=== PATIENT | male | born 1980 | race Hispanic/Latino ===

== ENCOUNTER → 2018-11-30 | Day surgery (SDC) | payer OTHER ==
[~2018-11-30] MED LIST: ACETAMINOPHEN 1000 MG/100 ML IV ONE; BACITRACIN 50,000 UNIT VIAL ONE; CEFAZOLIN SOD 1 GM/NS 50ML 50 ML IV ONE; DEXAMETHASONE SOD PHOS INJ 4 MG/ML VIAL ONE; FENTANYL CITRATE/PF 100MCG/2 ML INJ ONE; HYDROMORPHONE 1MG/1ML INJ ONE; KETOROLAC TROMETHAMINE 30 MG/ML VIAL ONE; LIDOCAINE HCL 2% LOCAL INJ 5 ML SDV VIAL INJ ONE; MEPERIDINE HCL INJ 25 MG/ML VIAL ONE; MIDAZOLAM HCL 2 MG/2 ML VIAL ONE; MOBIC7.5 MG PO; MORPHINE SULFATE INJ 10 MG/ML ONE; ONDANSETRON HCL INJ 2MG/ML 2ML 2 MG/ML VIAL ONE; PROPOFOL IV EMULSION 10 MG/ML 20 ML VIAL ONE; SEVOFLURANE INHAL SOLN 250 ML PEN BTL ONE
--- OUTSIDE RECORDS SUMMARY | 2018-11-30 09:13 | XMS REPORT ---
Author Author [facility] Address Unknown Phone Unavailable Care Team Providers Care Process Designer Name Role Phone Unavailable Unavailable Payers Payer Name Policy Type Policy Number Effective Date Expiration Date Problems This patient has no known problems. Allergies, Adverse Reactions, Alerts Allergy Name Allergy Type Status Severity Reaction(s) Onset Date Inactive Date Treating Clinician Comments No Known Allergies DA Active U 2017-09-24 00:00:00 Medications This patient has no known medications.
[2018-11-30 14:00] VITALS: BP 120/80
--- NOTE | 2018-11-30 23:52 | Operative Report ---
DATE OF PROCEDURE: 11/30/2018 SURGEON: Alonzo Blunt MD DYE ROOM HELPER: Trino Hess, certified PA. PREOPERATIVE DIAGNOSIS: Left knee medial meniscal tear with failed anterior cruciate ligament reconstruction. POSTOPERATIVE DIAGNOSIS: Left knee medial meniscal tear with failed anterior cruciate ligament reconstruction. PROCEDURE: Revision left knee arthroscopy with partial medial meniscectomy and revision anterior cruciate ligament reconstruction. INDICATIONS: The patient is a 38-year-old gentleman, who has clinic signs and symptoms consistent with a medial meniscal tear in his left knee. He is also status post a previous anterior cruciate ligament reconstruction. He has complaints of instability. Clinic exam and radiographic findings were consistent with a failed ACL reconstruction. The risks and benefits of a revision left knee arthroscopy, partial medial meniscectomy and revision ACL reconstruction have been explained. The lengthy recovery has been discussed. He states he understands and wishes to proceed. PROCEDURE IN DETAIL: The patient was brought to the operating room and placed under general anesthetic. His left lower extremity was prepped and draped in a sterile manner. A preoperative time-out was performed. An examination under anesthesia showed normal collateral stability. He had a positive pivot shift. The previous arthroscopic portals were utilized. The knee was insufflated with sterile saline and systematically inspected. There was some retropatellar scar tissue noted. The suprapatellar pouch was essentially unremarkable. There was some grade 1 to grade 2 changes of wear in the trochlear groove. The medial and lateral gutters were inspected and noted to be free of any loose bodies. The medial compartment showed well-preserved articular cartilage. The medial compartment was tight. There was a horizontal cleavage tear of the posterior horn of the medial meniscus. This was addressed with a pair of biting forceps and a mechanical shaver. This was debrided back to a hook stable margin. The cruciate ligament was inspected. The femoral tunnel was vertically oriented at 12 o'clock and approximately 5-10 mm anterior to the posterior border of the notch. The tibial tunnel was fairly well positioned. The ligament was completely relaxed and incompetent. Intraoperative photographs were taken to document the incompetence of the ACL. This was debrided with a biting forceps and a mechanical shaver. The lateral compartment was quickly inspected. This was probed. There was no evidence of lateral compartment wear or lateral meniscal tear. Notchplasty was performed with a bone bur. A new tibial tunnel was placed in a more medial to lateral fashion. As such, we did not use the previous ACL proximal tibial incision. A tibialis anterior allograft was prepared on the back table. This was noted to be 10 mm in diameter. The guide pin for the new tibial tunnel was over-reamed. Good bone quality was encountered. This was debrided with a shaver. A 5 mm [id number] guide was used to place a femoral guide pin. This was taken out at roughly the 3 o'clock position and the notch. This was brought out the lateral cortex and soft tissue. This was over-reamed with an Climateminder reamer a distance of about 35 mm. The 4.0 mm Endobutton drill was placed. The total depth was 46 mm. I elected to use a 20 mm Endobutton. This was attached to the tibialis anterior allograft. A relay suture was placed. This allowed passing the graft. Under significant tension, the Endobutton was deployed over the anterolateral femoral cortex. The knee was cycled multiple times with tension applied to the allograft. A 10 mm x 20 mm bioabsorbable interference screw was placed in the tibial tunnel. Care was taken to maintain the allograft positioning anterior to the interference screw. The arthroscope was then reintroduced into the knee joint. The allograft was under appropriate tension. There was no impingement on the notch. The remainder of the graft was resected from the proximal medial tibia. The knee was thoroughly irrigated. The wounds were closed with subcuticular Vicryl and nylon stitches. A sterile bandage and a Hettinger brace were applied. He was extubated and transported to the recovery room in stable condition. There was no blood loss and all needle and sponge counts were correct. Alonzo Blunt MD DR/IVY /[id number]
== END | disposition home or self-care (01) ==
LOC: OR 09:00
PROVIDERS: ATTEND Specialist
DX: M23.612 Other spontaneous disruption of anterior cruciate ligament of left knee (principal); S83.232A Complex tear of medial meniscus, current injury, left knee, initial encounter; K21.9 Gastro-esophageal reflux disease without esophagitis; M54.9 Dorsalgia, unspecified
CPT/HCPCS: 29881; 29888; J0131; J0690; J1100; J1170; J1885; J2001; J2175; J2250; J2270; J2405; J2704; J3010